=== PATIENT | female | born 1955 | race Caucasian/White ===

== ENCOUNTER 2021-07-17 17:56 | Emergency (ER) | payer MEDICARE, BC ==
[2021-07-17] MEDS ORDERED: Diphtheria,Pertussis(Acell),Tetanus Vaccine 0.5 ML Syringe IM ONE (18:21)
[2021-07-17] MEDS ORDERED: Bacitracin Oint 1 GM U/D Packet TOP ONE (18:21)
[2021-07-17] MEDS ORDERED: Lidocaine 1% 5 ML VIAL INJECT ONE (18:21)
== END 2021-07-17 19:04 | disposition home or self-care (01) ==
LOC: JP.ED 17:56
DX: S61.412A Laceration without foreign body of left hand, initial encounter (principal); Z79.899 Other long term (current) drug therapy; Z23 Encounter for immunization; W26.8XXA Contact with other sharp object(s), not elsewhere classified, initial encounter
CPT/HCPCS: 12001; 90471; 90715; 99281; 99282-25